=== PATIENT | male | born 1995 | race Two or more races ===

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

== ENCOUNTER → 2018-05-23 | Outpatient (CLI) | payer OTHER | END | disposition home or self-care (01) | LOC: CFH 16:09 | PROVIDERS: ATTEND Pediatrics Pediatric Hematology-Oncology | DX: C40.20 Malignant neoplasm of long bones of unspecified lower limb (principal); Z98.890 Other specified postprocedural states ==

== ENCOUNTER → 2020-02-04 | Outpatient (CLI) | payer OTHER | END | disposition home or self-care (01) | LOC: RAD 15:36 | DX: M21.70 Unequal limb length (acquired), unspecified site (principal) ==

== ENCOUNTER 2020-12-05 17:23 | Emergency (ER) | payer OTHER ==
[~2020-12-05] VITALS: Ht 165.1 cm; Wt 62.5 kg
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
[2020-12-05] MEDS ORDERED: KETOROLAC 60 MG/2 ML ONE (18:47)
--- NOTE | 2020-12-05 18:57 | NUR ---
REPORT FROM RIVAS JEFFERS
[2020-12-05] MEDS ORDERED: KETOROLAC 30 MG/1 ML IM ONE (19:00)
[2020-12-05 19:02] VITALS: BP 115/76
--- NOTE | 2020-12-05 19:02 | NUR ---
PT RETURNED FROM IMAGING
--- NOTE | 2020-12-05 20:01 | NUR ---
PT SITTING UPRIGHT ON SILVESTRE ARAIZA VSS. PT REPORTS IMPROVED PAIN FOLLOWING BUSINESS ADVISOR "I CAN CALM DOWN A LITTLE". PT DENIES ANY NEEDS AT THIS TIME. CALL LIGHT AND PERSONAL BELONGINGS WITHIN REACH.
--- NOTE | 2020-12-05 20:38 | NUR ---
Patient given discharge instructions and they have confirmed that they understand the instructions. Patient ambulatory with steady gait.
== END 2020-12-05 20:43 | disposition home or self-care (01) ==
LOC: ED 20:37
DX: G89.11 Acute pain due to trauma (principal); M54.5 Low back pain; Z87.891 Personal history of nicotine dependence; V43.52XA Car driver injured in collision with other type car in traffic accident, initial encounter; Y93.89 Activity, other specified; Y92.89 Other specified places as the place of occurrence of the external cause; Y99.8 Other external cause status
CPT/HCPCS: 72110; 96372; 99283; J1885